=== PATIENT | male | born 1930 | race Caucasian/White ===

== ENCOUNTER 2017-09-05 07:59 | Outpatient (CLI) | payer MEDICARE, OTHER ==
[2017-09-05 09:09] LABS: Hemoglobin 17.3 g/dL (14.0-18.0); Mean Corpuscular HGB CONC 32.4 g/dL (32.0-36.0); Mean Corpuscular Volume 95.7 fl (80.0-94.0); Mean Platelet Volume 6.7 fL (7.4-10.4); Platelet Count 212 thou/uL (130-400); RBC Distribution Width 13.6 % (11.5-14.5); Red Blood Cell (RBC) Count 5.56 mill/uL (4.70-6.10); White Blood Cell (WBC) Count 6.5 thou/uL (4.8-10.8)
[2017-09-05 09:26] LABS: Anion Gap 14 mmol/L (10-20); BUN (Urea Nitrogen) 24 mg/dL (8.4-25.7); Calc. Creatinine Clearance 0 mL/min (70-130); Calcium 9.5 mg/dL (7.8-10.44); Carbon Dioxide 29 mmol/L (23-31); Chloride 100 mmol/L (98-107); Estimated GFR-MDRD 43; Glucose 177 mg/dL (83-110); Potassium 4.7 mmol/L (3.5-5.1); Sodium 138 mmol/L (136-145)
[2017-09-05 09:29] LABS: INR-International Normal Ratio 2.5; PTT 34.8 SEC (22.9-36.1); Prothrombin Time 27.9 SEC (12.0-14.7)
--- NOTE | 2017-11-04 21:47 | EKG ---
Test Reason : Blood Pressure : / mmHG Vent. Rate : 074 BPM Atrial Rate : 357 BPM P-R Int : 000 ms QRS Dur : 108 ms QT Int : 412 ms P-R-T Axes : 000 -31 -45 degrees QTc Int : 457 ms Demand pacemaker; interpretation is based on intrinsic rhythm Atrial fibrillation with premature ventricular or aberrantly conducted complexes Left axis deviation Abnormal ECG When compared with ECG of 07-MAY-2001 00:14, Atrial fibrillation has replaced Sinus rhythm Confirmed by LORRIE JOY M.D. ([id number]) on 11/04/2017 9:46:56 PM Referred By: [facility] Confirmed By:LORRIE JOY M.D.
== END 2017-09-05 08:00 | disposition home or self-care (01) ==
LOC: LABBT 07:59
PROVIDERS: ATTEND Internal Medicine Cardiovascular Disease
DX: Z01.818 Encounter for other preprocedural examination (principal); I48.91 Unspecified atrial fibrillation
CPT/HCPCS: 80048; 85027; 85610; 85730; 93005; 93010

== ENCOUNTER → 2017-09-23 | Day surgery (SDC) | payer MEDICARE, OTHER ==
[2017-09-05 08:22] VITALS: BMI 26.9
[~2017-09-23] MED LIST: PROPOFOL 200 MG/20 ML VIAL ONE; PROPOFOL 40 ML ONE
--- NOTE | 2017-09-23 13:15 | OP ---
DATE OF PROCEDURE: 09/23/2017 ICD INTERROGATION REPORT REASON FOR PROCEDURE: This is an 87-year-old man with cardiomyopathy and dual chamber ICD in place. He has recurrent atrial fibrillation and underwent a cardioversion through his device today. RESULTS: This is a [employer] [address] DR dual chamber pacemaker defibrillator battery voltage with longevity up to 3 years. Lead parameters appears to be adequate, 1.2 millivolts fibrillation, pace s ensing in the atrium and 11.8 millivolts, RV sensing impedance 440 and 530 ohms respectively, high vo ltage impedance 42 ohms. The patient is continued in atrial fibrillation and pacing currently up to 46%. Cardioversion was performed and following that the patient returned to sinus rhythm. His suppression was programmed on. CONCLUSION: 1. Adequate functioning dual chamber pacemaker defibrillator after internal cardioversion. 2. Reprogrammed the device to allow for overdrive pacing of the atrium with hopes to minimize the re current atrial fibrillation.
--- NOTE | 2017-09-24 | OP ---
DATE OF PROCEDURE: 09/23/2017 INTERNAL CARDIOVERSION REPORT REFERRING PHYSICIAN: Dr. Juan A Brown. REASON FOR PROCEDURE: Mr. Denise is an 87-year-old man with prior history of paroxysmal atrial arr hythmias, present sotalol with episodic recurrence. Though he had prior cardioversion in the past, n ow with a recurrence. His INR is adequate at 2.4, most recently. PROCEDURE: The patient received propofol for deep sedation. After adequate level of sedation [facility] and ICD was interrogated, a synchronized internal full residual shock promptly converted the patie nt back to sinus rhythm. CONCLUSION: Successful cardioversion. PLAN: ICD will be re-interrogated and re-programmed . Continue sotalol at 120 mg twice a day and continue Coumadin with target INR 2-3.
== END ==
LOC: CCL 09:40
PROVIDERS: ATTEND Internal Medicine Cardiovascular Disease
PROC: 5A2204Z Restoration of Cardiac Rhythm, Single (ICD-10-PCS; principal; 2017-09-23)
PROC: 4B02XTZ Measurement of Cardiac Defibrillator, External Approach (ICD-10-PCS; 2017-09-23)
DX: I48.91 Unspecified atrial fibrillation (principal); I25.5 Ischemic cardiomyopathy; I50.9 Heart failure, unspecified; I25.10 Atherosclerotic heart disease of native coronary artery without angina pectoris; Z79.82 Long term (current) use of aspirin; Z79.01 Long term (current) use of anticoagulants; Z79.899 Other long term (current) drug therapy; Z88.8 Allergy status to other drugs, medicaments and biological substances; Z95.1 Presence of aortocoronary bypass graft; Z96.1 Presence of intraocular lens; Z90.79 Acquired absence of other genital organ(s); Z98.890 Other specified postprocedural states
CPT/HCPCS: 92960; J2704